=== PATIENT | male | born 1960 | race American Indian/Alaskan Native ===

== ENCOUNTER 2019-08-13 08:54 | Inpatient (IN) | payer OTHER ==
[2019-08-13] MEDS ORDERED: amLODIPine 5 MG TAB PO ONE (10:18)
[2019-08-13] MEDS ORDERED: LOSARTAN 50 MG TAB PO ONE (10:18)
[2019-08-13] MEDS ORDERED: oxyCODONE /ACETAMINOPHEN 5-325MG TAB PO ONE (10:19)
--- NOTE | 2019-08-13 10:23 | Emergency Department Report ---
ED General Adult HPI - General Chief complaint: Extremity Injury, Lower Stated complaint: RT ANKLE/LEG PAIN Time Seen by Provider: 08/13/19 10:12 Source: patient Mode of arrival: Ambulatory Limitations: No Limitations - History of Present Illness Initial comments: 58-year-old -Romanian male patient with history of hypertension and BPH since with complaints of right leg pain for the past week. Patient states pain began after he stepped out of his truck wrong. He states there is swelling and the pain extends from his groin to his lower leg. He denies any history of DVT/PE. 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 He rates his pain as a 10/10 in severity and states it is difficult to ambulate and weakness or back pain. Patient does admit to numbness in his right leg -: Sudden - Related Data Previous Rx's Medication Instructions Recorded Last Taken Type Acetaminophen/Codeine [Tylenol 1 tab PO Q6H PRN #12 tab 08/13/19 Unknown Rx /Codeine # 3 tab] Apixaban [Eliquis] 5 mg PO BID 30 Days #37 tablet 08/13/19 Unknown Rx Allergies Allergy/AdvReac Type Severity Reaction Status Date / Time Penicillins Allergy Swelling Verified 08/13/19 08:56 ED Review of Systems ROS: Stated complaint: RT ANKLE/LEG PAIN Other details as noted in HPI Comment: All other systems reviewed and negative Musculoskeletal: as per HPI ED Past Medical Hx - Past Medical History Hx Hypertension: Yes Additional medical history: KIDNEY - Surgical History Past Surgical History?: No - Social History Smoking Status: Never Smoker - Medications Home Medications: Home Medications Medication Instructions Recorded Confirmed Last Taken Type Acetaminophen/Codeine [Tylenol 1 tab PO Q6H PRN #12 tab 08/13/19 Unknown Rx /Codeine # 3 tab] Apixaban [Eliquis] 5 mg PO BID 30 Days #37 tablet 08/13/19 Unknown Rx ED Physical Exam - General Limitations: No Limitations General appearance: alert, in no apparent distress - Head Head exam: Present: atraumatic, normocephalic - Eye Eye exam: Present: normal appearance. Absent: scleral icterus - Neck Neck exam: Present: full ROM - Respiratory Respiratory exam: Present: normal lung sounds bilaterally. Absent: respiratory distress, wheezes, rales, rhonchi - Cardiovascular Cardiovascular Exam: Present: regular rate, normal rhythm. Absent: systolic murmur, diastolic murmur, rubs, gallop - Extremities Exam Extremities exam: Present: full ROM, tenderness, calf tenderness (right), other (diffuse tenderness to palpation throughout posterior right upper and lower leg with moderate swelling noted to posterior knee and lower calf and ankle. Normal pedal pulses noted. Unable to palpate right femoral or popliteal pulses due to pain) - Expanded Lower Extremity Exam Right Lower Leg exam: Present: swelling, Jaycee's sign - Back Exam Back exam: Present: normal inspection, full ROM - Neurological Exam Neurological exam: Present: alert, oriented X3 - Psychiatric Psychiatric exam: Present: normal affect, normal mood ED Course Vital Signs 08/13/19 08/13/19 08/13/19 08:56 10:55 12:54 Temperature 98 F Pulse Rate 76 Respiratory 18 18 Rate Blood Pressure 179/99 O2 Sat by Pulse 97 Oximetry ED Medical Decision Making - Lab Data Result diagrams: 08/13/19 11:22 08/13/19 11:22 Lab Results 08/13/19 08/13/19 08/13/19 Range/Units 11:22 11:22 11:22 WBC 7.8 (4.5-11.0) K/mm3 RBC 4.97 (3.65-5.03) M/mm3 Hgb 14.0 (11.8-15.2) gm/dl Hct 41.4 (35.5-45.6) % MCV 83 L (84-94) fl MCH 28 (28-32) pg MCHC 34 (32-34) % RDW 15.1 (13.2-15.2) % Plt Count 177 (140-440) K/mm3 Lymph % (Auto) 25.2 (13.4-35.0) % Barton % (Auto) 10.4 H (0.0-7.3) % Eos % (Auto) 4.8 H (0.0-4.3) % Baso % (Auto) 0.7 (0.0-1.8) % Lymph # 2.0 (1.2-5.4) K/mm3 Barton # 0.8 (0.0-0.8) K/mm3 Eos # 0.4 (0.0-0.4) K/mm3 Baso # 0.1 (0.0-0.1) K/mm3 Seg Neutrophils % 58.9 (40.0-70.0) % Seg Neutrophils # 4.6 (1.8-7.7) K/mm3 PT 13.7 (12.2-14.9) Sec. INR 1.04 (0.87-1.13) APTT 26.6 (24.2-36.6) Sec. Sodium 136 L (137-145) mmol/L Potassium 4.3 (3.6-5.0) mmol/L Chloride 100.8 (98-107) mmol/L Carbon Dioxide 22 (22-30) mmol/L Anion Gap 18 mmol/L BUN 17 (9-20) mg/dL Creatinine 1.5 (0.8-1.5) mg/dL Estimated GFR 58 ml/min BUN/Creatinine Ratio 11 % Glucose 96 (75-100) mg/dL Calcium 9.3 (8.4-10.2) mg/dL Total Bilirubin 0.70 (0.1-1.2) mg/dL AST 25 (5-40) units/L ALT 15 (7-56) units/L Alkaline Phosphatase 84 (35-129) units/L Total Protein 7.5 (6.3-8.2) g/dL Albumin 4.1 (3.9-5) g/dL Albumin/Globulin Ratio 1.2 % - Radiology Data Radiology results: report reviewed DUPLEX DOPPLER LOWER EXTREMITY VEINS, RIGHT INDICATION: diffuse pain and swelling. TECHNIQUE: Duplex doppler imaging was performed through the veins of the right lower extremity using venous compression and other maneuvers. COMPARISON: None available. FINDINGS: Common femoral vein: Nonocclusive thrombus is noted Superficial femoral vein: There is occlusive thrombus throughout Popliteal vein: There is occlusive thrombus throughout Calf veins: There is occlusive thrombus Additional findings: None. IMPRESSION: 1. There is extensive DVT in the right lower extremity from the common femoral vein to the calf veins. The thrombus is occlusive in the superficial femoral vein, popliteal vein and calf veins. - Medical Decision Making 58-year-old -Romanian male patient with history of hypertension and BPH presents today with right leg pain and swelling 1 week. Significant risk factors include sitting for extended hours while driving on a regular basis. Doppler ultrasound shows occlusive DVT of the popliteal,, and superficial femoral veins and a nonocclusive DVT of the common femoral vein. She denies any shortness of breath, chest pain, cough, or dizziness. Pulse ox is 98% on room air. Do not suspect PE at this time. Consulted with Dr. Gonzales, vascular surgery, who came down to the ED and saw and spoke with the patient; states patient is stable for outpatient treatment and recommends 1 dose of Lovenox and discharge on eliquis or xarelto. Also recommends that the patient follow up with hematology. Dr. Gonzales also recommended compression stockings. Discussed treatment plan, and need for follow-up with hematology, very strict return precautions in detail with patient who states understanding. Critical care attestation.: If time is entered above; I have spent that time in minutes in the direct care of this critically ill patient, excluding procedure time. ED Disposition Clinical Impression: Right femoral vein DVT Qualifiers: Chronicity: acute Qualified Code(s): I82.411 - Acute embolism and thrombosis of right femoral vein Deep vein thrombosis (DVT) of calf muscle vein of right lower extremity Qualifiers: Chronicity: acute Qualified Code(s): I82.461 - Acute embolism and thrombosis of right calf muscular vein Deep vein thrombosis (DVT) of iliac vein of right lower extremity Qualifiers: Chronicity: acute Qualified Code(s): I82.421 - Acute embolism and thrombosis of right iliac vein Disposition: DC-01 TO HOME OR SELFCARE Is pt being admited?: No Condition: Stable
--- NOTE | 2019-08-13 11:14 | Vascular Lab Report ---
DUPLEX DOPPLER LOWER EXTREMITY VEINS, RIGHT INDICATION: diffuse pain and swelling. TECHNIQUE: Duplex doppler imaging was performed through the veins of the right lower extremity using venous comp ression and other maneuvers. COMPARISON: None available. FINDINGS: Common femoral vein: Nonocclusive thrombus is noted Superficial femoral vein: There is occlusive thrombus throughout Popliteal vein: There is occlusive thrombus throughout Calf veins: There is occlusive thrombus Additional findings: None. IMPRESSION: 1. There is extensive DVT in the right lower extremity from the common femoral vein to the calf veins . The thrombus is occlusive in the superficial femoral vein, popliteal vein and calf veins. CRITICAL RESULT: Technologist called this report to Shemar Barry at time 1056 Eastern time. Report was confirmed. Signer Name: Higinio Do MD Signed: 08/13/2019 11:10 AM Workstation Name: [id number]
[2019-08-13 11:57] LABS: Basophils # (Auto) 0.1 K/mm3 (0.0-0.1); Basophils % (Auto) 0.7 % (0.0-1.8); Eosinophils # (Auto) 0.4 K/mm3 (0.0-0.4); Eosinophils % (Auto) 4.8 % (0.0-4.3); Hematocrit 41.4 % (35.5-45.6); Lymphocytes % (Auto) 25.2 % (13.4-35.0); Mean Corpuscular HGB Conc 34 % (32-34); Mean Corpuscular Volume 83 fl (84-94); Monocytes # (Auto) 0.8 K/mm3 (0.0-0.8); Monocytes % (Auto) 10.4 % (0.0-7.3); Platelet Count 177 K/mm3 (140-440); Red Blood Count 4.97 M/mm3 (3.65-5.03); Red Cell Distribution Width 15.1 % (13.2-15.2)
[2019-08-13 12:05] LABS: INR 1.04 (0.87-1.13)
[2019-08-13 12:06] LABS: Partial Thromboplastin Time 26.6 Sec. (24.2-36.6)
[2019-08-13 12:20] LABS: Albumin 4.1 g/dL (3.9-5); Calcium 9.3 mg/dL (8.4-10.2)
[2019-08-13] MEDS ORDERED: HEPARIN 10,000 UNITS/10 ML VIAL IV ONE (13:25)
[2019-08-13] MEDS ORDERED: HEPARIN/ 0.45% NACL DRIP 25,000 UNIT/500 ML BAG IV SCH (14:00)
[2019-08-13] MEDS ORDERED: ENOXAPARIN 100 MG/1 ML INJ SUB-Q ONE ×2 (14:22→14:45)
--- NOTE | 2019-08-13 14:30 | Consultation ---
History of Present Illness - Reason for Consult Consult date: 08/13/19 Requesting physician: FRANCESCO MCKEON - History of Present Illness HPI: 58yo male with 5 day history of worsening right leg pain and swelling. The patient denies any recent falls or trauma to the right leg. A right lower extremity venous duplex performed in the ED demonstrated extensive DVT in the right leg. Patient denies history of previous DVT. He denies chest pain or shortness of breath. ROS: as per HPI, otherwise negative PE: NAD, A&Ox3 RRR non-labored respirations right leg 1-2+ edema right foot warm, palpable DP pulse, motor/sensory intact Venous duplex reviewed Plan: Acute RLE DVT perfusion to the right leg intact, no neurological deficits No need for immediate intervention patient to discharged with OAC patient needs follow-up with Corporate Services Manager for hypercoag work-up patient to wear compression stockings after anticoagulation started Medications and Allergies Allergies Allergy/AdvReac Type Severity Reaction Status Date / Time Penicillins Allergy Swelling Verified 08/13/19 08:56 Exam - Constitutional Vitals: Temp Pulse Resp BP Pulse Ox 98 F 76 18 179/99 97 08/13/19 08:56 08/13/19 08:56 08/13/19 10:55 08/13/19 08:56 08/13/19 12:54 Results - Labs CBC & Chem 7: 08/13/19 11:22 08/13/19 11:22 Labs: Abnormal lab results 08/13/19 08/13/19 Range/Units 11:22 11:22 MCV 83 L (84-94) fl King % (Auto) 10.4 H (0.0-7.3) % Eos % (Auto) 4.8 H (0.0-4.3) % Sodium 136 L (137-145) mmol/L
[2019-08-13] MEDS ORDERED: ENOXAPARIN 30 MG/0.3 ML INJ SUB-Q ONE (14:45)
[2019-08-13 15:34] VITALS: BP 151/78
== END 2019-08-13 15:35 | disposition home or self-care (01) | DRG 301 ==
LOC: ED 08:54 → 3A 13:10
PROVIDERS: ADMIT Internal Medicine; ATTEND Internal Medicine
DX: I82.411 Acute embolism and thrombosis of right femoral vein (principal); I10 Essential (primary) hypertension; I82.421 Acute embolism and thrombosis of right iliac vein; I82.461 Acute embolism and thrombosis of right calf muscular vein; N40.0 Benign prostatic hyperplasia without lower urinary tract symptoms; Z79.899 Other long term (current) drug therapy; Z88.0 Allergy status to penicillin
CPT/HCPCS: 36415; 80053; 85025; 85610; 85730; 96372; G0378; J1650

== ENCOUNTER 2019-08-30 15:18 | Outpatient (CLI) | payer OTHER ==
[2019-08-30 16:00] LABS: Hematocrit 42.8 % (35.5-45.6); Hemoglobin 13.9 gm/dl (11.8-15.2); Mean Corpuscular HGB Conc 33 % (32-34); Mean Corpuscular Volume 83 fl (84-94); Platelet Count 283 K/mm3 (140-440); Red Blood Count 5.19 M/mm3 (3.65-5.03); Red Cell Distribution Width 15.1 % (13.2-15.2)
[2019-08-30 16:07] LABS: Creatinine,Urine 268.6 mg/dL (0.1-20.0); Protein/Creatinine Ratio,Urine 0.08
[2019-08-30 16:11] LABS: Bilirubin,Urine NEG (Negative); Blood,Urine SM (Negative); Color,Urine Yellow (Yellow); Mucus,Urine FEW /HPF; Protein,Urine <15 mg/dL mg/dL (Negative); Urobilinogen,Urine < 2.0 mg/dL (<2.0); WBC,Urine < 1.0 /HPF (0.0-6.0)
[2019-08-30 16:29] LABS: Albumin 4.3 g/dL (3.9-5); Calcium 9.5 mg/dL (8.4-10.2)
[2019-08-30 18:59] LABS: Basophils % (Manual) 0 % (0.0-1.8); Platelet Estimate Consistent w Auto; RBC Morphology Normal; Total Cells Counted 100
[2019-09-02 17:13] LABS: Vitamin D, 25-OH, D2 <4 ng/mL
[2019-09-03 07:24] LABS: HIV-1 Antibody Differentiation SEE SCANNED RESULT; HIV-2 Antibody Differentiation SEE SCANNED RESULT
[2019-09-03 12:43] LABS: ANA Screen, IFA Negative (Negative)
[2019-09-04 01:07] LABS: Albumin 4.2 g/dL (3.8-4.8); Gamma Globulin 1.3 g/dL (0.8-1.7)
== END 2019-08-30 15:19 | disposition home or self-care (01) ==
LOC: LAB 15:18
PROVIDERS: ATTEND Internal Medicine Nephrology
DX: N18.3 Chronic kidney disease, stage 3 (moderate) (principal); N25.81 Secondary hyperparathyroidism of renal origin; R80.0 Isolated proteinuria
CPT/HCPCS: 36415; 80053; 81001; 82306; 82570; 83970; 84100; 84156; 84165; 85007; 85025; 86038; 86160; 86689; 86706; 86803